=== PATIENT | male | born 1950 | race Two or more races ===

== ENCOUNTER 2022-06-01 12:11 | Emergency (ER) | payer OTHER ==
[~2022-06-01] VITALS: Ht 182.9 cm; Wt 95.7 kg
[2022-06-01] MEDS ORDERED: COZAAR50 MG PO (12:46)
[2022-06-01] MEDS ORDERED: VITAMIN C WIT1000 M2 PO (12:47)
[2022-06-01] MEDS ORDERED: ADULT LOW DOSE81 M1 PO (12:47)
== END 2022-06-01 13:51 | disposition home or self-care (01) ==
LOC: ER 12:11
DX: S40.812A Abrasion of left upper arm, initial encounter (principal); W54.0XXA Bitten by dog, initial encounter; Y93.9 Activity, unspecified; Y92.9 Unspecified place or not applicable